=== PATIENT | female | born 1960 | race Caucasian/White ===

== ENCOUNTER 2021-10-02 04:24 | Day surgery (SDC) | payer BC, OTHER ==
[2021-09-30 16:34] VITALS: BMI 30.2
[2021-10-02] MEDS ORDERED: MIDAZOLAM HCL 2 MG/2 ML SINGLE DOSE VIAL ONE ×4 (10:36)
[2021-10-02] MEDS ORDERED: ceFAZolin SODIUM 1 GM VIAL IVPB ONE (11:08)
[2021-10-02] MEDS ORDERED: oxyCODONE HCL 5 MG TABLET PO PRN ×2 (12:47→14:04)
[2021-10-02] MEDS ORDERED: ACETAMINOPHEN 1000 MG/100 ML BAG IVPB ONE (12:47)
[2021-10-02] MEDS ORDERED: ACETAMINOPHEN INJECTION 100 ML IVPB ONE (13:00)
[2021-10-02] MEDS ORDERED: ONDANSETRON 4 MG/2 ML VIAL IVPUSH PRN ×2 (14:04→14:49)
[2021-10-02] MEDS ORDERED: LACTATED RINGERS SOLUTION 1,000 ML IV SCH ×2 (14:15→15:00)
[2021-10-02 17:17] VITALS: BP 131/83; PULSE 60; TEMP 97.7
== END 2021-10-02 15:35 | disposition home or self-care (01) ==
LOC: JASU-SURG 04:24
PROVIDERS: ATTEND Specialist
PROC: 0UT14ZZ Resection of Left Ovary, Percutaneous Endoscopic Approach (ICD-10-PCS; principal; 2021-10-02 11:00)
PROC: 0UT64ZZ Resection of Left Fallopian Tube, Percutaneous Endoscopic Approach (ICD-10-PCS; 2021-10-02 11:00)
DX: N83.202 Unspecified ovarian cyst, left side (principal); N73.6 Female pelvic peritoneal adhesions (postinfective)
CPT/HCPCS: 86850; 86900; 86901; 88108; 88305-TC; 88307-TC; 94760

== ENCOUNTER 2024-01-16 20:29 | Observation (INO) | payer BC ==
[2024-01-16] MEDS ORDERED: MECLIZINE HCL 25 MG TABLET (FP) ONE (22:01)
[2024-01-16] MEDS ORDERED: ACETAMINOPHEN INJECTION 100 ML IVPB ONE (22:01)
[2024-01-16] MEDS ORDERED: METOCLOPRAMIDE HCL INJECTION 10 MG/2 ML VIAL ONE (22:01)
[2024-01-16] MEDS: MECLIZINE HCL 25 MG TABLET (FP) PO ONE (22:25)
[2024-01-16] MEDS: LACTATED RINGERS SOLUTION 1000 ML INFUS.BAG IV ONE (22:25)
[2024-01-16] MEDS: ACETAMINOPHEN 1000 MG/100 ML BAG IVPB ONE (22:25)
[2024-01-16] MEDS: METOCLOPRAMIDE HCL INJECTION 10 MG/2 ML VIAL IVPB ONE (22:32)
[2024-01-16 22:34] LABS: BASO % 0.8 % (0-2.0); EOS % 2.5 % (0-4.5); HEMOGLOBIN 11.9 GM/dL (10.7-15.3); LYMPH % 30.4 % (8-40); MCH 29.4 pg (25.7-33.7); MEAN CELL VOLUME 86.5 fl (80-96); MEAN PLT VOLUME 7.7 fl (7.5-11.1); MONO % 6.3 % (3.8-10.2); PLATELET COUNT 236 10^3/uL (134-434); RBC 4.04 M/mm3 (3.60-5.2); RDW 13.7 % (11.6-15.6); WHITE BLOOD COUNT 6.2 K/mm3 (4.0-10.0)
[2024-01-16 22:54] LABS: POTASSIUM 4.5 mmol/L (3.5-5.1)
[2024-01-16 23:00] LABS: INR 0.98 (0.83-1.09); PROTHROMBIN TIME (PATIENT) 11.1 SEC (9.7-13.0)
[2024-01-16 23:02] LABS: ACTIVATED PTT 33.6 SECONDS (25.2-36.5)
[2024-01-16 23:12] LABS: BILIRUBIN,TOTAL 0.3 mg/dL (0.2-1); CALCIUM 9.3 mg/dL (8.5-10.1); CREATININE 1.1 mg/dL (0.55-1.3); MAGNESIUM 2.3 mg/dL (1.8-2.4); TOT PROT 7.6 g/dl (6.4-8.2)
[2024-01-16 23:56] LABS: EPI CELLS 5 /uL (0-25.1); HYALINE CASTS 0 /uL (0-3.1); PH,URINE 6.5 (5.0-8.0); URINE APPEARANCE CLEAR; URINE BACTERIA 2240 /uL (0-1359); URINE BILIRUBIN NEGATIVE (NEGATIVE); URINE COLOR YELLOW; URINE GLUCOSE (UA) NEGATIVE (NEGATIVE); URINE KETONE NEGATIVE (NEGATIVE); URINE LEUK ESTERASE 1+ (NEGATIVE); URINE NITRITE NEGATIVE (NEGATIVE); URINE PROTEIN NEGATIVE (NEGATIVE); URINE RBC 8 /uL (0-23.9); URINE UROBILINOGEN 0.2 mg/dL (0.2-1.0); URINE WBC 45 /uL (0-25.8)
[2024-01-17] MEDS ORDERED: diphenhydrAMINE HCL 25 MG CAPSULE (FP) PO ONE (00:23)
[2024-01-17] MEDS ORDERED: DEXAMETHASONE SOD PHOSPHATE 10 MG/1 ML VIAL ONE (00:23)
[2024-01-17] MEDS ORDERED: CEFTRIAXONE 1 GM/50 ML BAG ONE (00:23)
[2024-01-17] MEDS: diphenhydrAMINE HCL 25 MG CAPSULE (FP) PO ONE (00:35)
[2024-01-17] MEDS: DEXAMETHASONE 4 MG TABLET (FP) PO ONE (00:35)
[2024-01-17] MEDS: CEFTRIAXONE 1,000 MG in DEXTROSE 5%-WATER - 50 ML IVPB ONE (00:35)
[2024-01-17] MEDS ORDERED: LABETALOL HCL 5 MG/1 ML (100MG/20 ML VIAL) ONE (02:25)
[2024-01-17] MEDS: LABETALOL HCL 5 MG/1 ML (100MG/20 ML VIAL) IVPUSH ONE (02:39)
[2024-01-17] MEDS ORDERED: ATORVASTATIN CA 40 MG TABLET (FP) ONE (03:25)
[2024-01-17] MEDS ORDERED: ASPIRIN 81 MG CHEWABLE TABLETS ONE (03:25)
[2024-01-17] MEDS: LACTATED RINGERS SOLUTION 1,000 ML/1,000 ML INFUS.BAG IV SCH (03:39)
[2024-01-17] MEDS: ATORVASTATIN CA 40 MG TABLET (FP) PO ONE (03:39)
[2024-01-17] MEDS: ASPIRIN 81 MG CHEWABLE TABLETS PO ONE (03:39)
[2024-01-17 04:19] LABS: CHOLESTEROL 264 mg/dL (50-200)
[2024-01-17 04:20] LABS: LDL CHOLESTEROL (ONLY SJRH) 114 mg/dL (5-100)
[2024-01-17 04:21] LABS: HDL CHOLESTEROL 67 mg/dL (40-60)
[2024-01-17 05:36] VITALS: BMI 30.2
[2024-01-17] MEDS: LOSARTAN POTASSIUM 50 MG TABLET PO SCH (06:25)
[2024-01-17 07:33] LABS: POTASSIUM 4.1 mmol/L (3.5-5.1)
[2024-01-17 07:35] LABS: ALBUMIN 3.7 g/dl (3.4-5.0); BLOOD UREA NITROGEN 17.3 mg/dL (7-18); CALCIUM 9.2 mg/dL (8.5-10.1)
[2024-01-17 07:38] LABS: CREATININE 1.1 mg/dL (0.55-1.3)
[2024-01-17 07:40] LABS: BILIRUBIN,TOTAL 0.3 mg/dL (0.2-1); TOT PROT 7.3 g/dl (6.4-8.2)
[2024-01-17 07:44] LABS: BASO % 0.5 % (0-2.0); EOS % 0.2 % (0-4.5); HEMATOCRIT 34.6 % (32.4-45.2); HEMOGLOBIN 11.5 GM/dL (10.7-15.3); LYMPH % 16.7 % (8-40); MCH 29.3 pg (25.7-33.7); MCHC 33.3 g/dl (32.0-36.0); MEAN CELL VOLUME 88.1 fl (80-96); MEAN PLT VOLUME 8.6 fl (7.5-11.1); NEUT % 80.6 % (42.8-82.8); PLATELET COUNT 219 10^3/uL (134-434); RBC 3.93 M/mm3 (3.60-5.2); RDW 13.6 % (11.6-15.6); WHITE BLOOD COUNT 5.5 K/mm3 (4.0-10.0)
[2024-01-17] MEDS: HYDROCORTISONE 1% TOPICAL CREAM 30 GM TUBE TP PRN (09:52)
[2024-01-17] MEDS: BETAMETHASONE DIPR 0.05% OINT 45 GM TUBE TP SCH ×2 (09:53→09:54)
[2024-01-17] MEDS ORDERED: CEFTRIAXONE 1 GM in DEXTROSE 5%-WATER - 50 ML IVPB SCH ×2 (10:00→23:00)
[2024-01-17] MEDS: ASPIRIN COATED 81 MG TABLET.EC PO SCH (11:56)
[2024-01-17] MEDS: ENOXAPARIN NA (PORCINE) 40 MG/0.4 ML DISP.SYRIN SQ SCH (11:57)
[2024-01-17] MEDS: MECLIZINE HCL 25 MG TABLET (FP) PO PRN (11:57)
[2024-01-17 14:26] VITALS: BP 121/59; PULSE 84; RESP 18; TEMP 98.5
[2024-01-17] MEDS ORDERED: ATORVASTATIN CA 40 MG TABLET (FP) PO SCH (22:00)
[2024-01-17] MEDS ORDERED: ATORVASTATIN CA 10 MG TABLET (FP) PO SCH (22:00)
== END 2024-01-17 18:55 | disposition home or self-care (01) ==
LOC: JER 20:29 → JERBED 01-17 02:47 → J4S 01-17 05:15
PROVIDERS: ADMIT Internal Medicine; ATTEND Internal Medicine
PROC: 3E033NZ Introduction of Analgesics, Hypnotics, Sedatives into Peripheral Vein, Percutaneous Approach (ICD-10-PCS; principal; 2024-01-17)
PROC: 3E03329 Introduction of Other Anti-infective into Peripheral Vein, Percutaneous Approach (ICD-10-PCS; 2024-01-17)
PROC: 3E023GC Introduction of Other Therapeutic Substance into Muscle, Percutaneous Approach (ICD-10-PCS; 2024-01-17)
PROC: 3E0337Z Introduction of Electrolytic and Water Balance Substance into Peripheral Vein, Percutaneous Approach (ICD-10-PCS; 2024-01-17)
DX: H81.10 Benign paroxysmal vertigo, unspecified ear (principal); I16.0 Hypertensive urgency; E78.5 Hyperlipidemia, unspecified; R82.71 Bacteriuria; Z90.79 Acquired absence of other genital organ(s)
CPT/HCPCS: 36415; 70450-TC; 70496-TC; 70498-TC; 80053; 80061; 81003; 82962; 83036; 83735; 84484; 85025; 85610; 85730; 86850; 86900; 86901; 87086; 87186; 93005; 93010; 97116-GP; 99285-25; G0378; J0131